=== PATIENT | male | born 1975 | race Caucasian/White ===

== ENCOUNTER 2018-04-15 17:32 | Emergency (ER) | payer OTHER ==
[2018-04-15 18:41] VITALS: O2SAT 97
--- NOTE | 2018-04-15 19:24 | ERPHSYRPT ---
- History of Present Illness Time Seen by Provider: 04/15/18 19:13 Source: patient Exam Limitations: no limitations Patient Subjective Stated Complaint: Patient complains of being dizzy. Patient also states he has a headache. Patient has been vomitting since last noc. Patient very tired. Triage Nursing Assessment: Patient ambulates into ER and transfers into bed per self. Patient complains of being dizzy. Patient has a headache. Patient states he started not feeling well last night at work and started vomitting. Patient hasn't vomitting since 0530 this am. Patient has slept all day and is more tired than usual. Patient A+O X 3. Patient pupils PERRL. No facial drooping noted. Hand loan reviewer strong and equal. Physician History: 42-year-old white male with history of high blood pressure arrives with complaint of nausea vomiting dizziness headache symptoms since yesterday no fevers. Patient states he might having eaten a bed can of tuna. Past medical history includes high blood pressure. Past surgical history is negative. Timing/Duration: yesterday Severity: moderate Modifying Factors: Improves With: other (patient thinks he ate a bad can of tuna yesterday) Associated Symptoms: nausea, vomiting, diaphoresis, headaches, No abdominal pain , No shortness of breath, No heartburn, No cough, No chills, No chest pain, No fever, No loss of appetite, No malaise, No rash, No syncope, No seizure Home Medications: Olmesartan/Hydrochlorothiazide [Benicar Hct 40-12.5 mg Tablet] 1 each PO DAILY 12/12/12 [History] Verapamil HCl Sr 180 mg [Isoptin Sr 180Mg] 2 tab PO DAILY 04/15/18 [ History] Hx Tetanus, Diphtheria Vaccination/Date Given: Yes Hx Influenza Vaccination/Date Given: Yes Hx Pneumococcal Vaccination/Date Given: No Immunizations Up to Date: Yes - Review of Systems Constitutional: No Fever, No Chills Eyes: No Symptoms Ears, Nose, & Throat: No Symptoms Respiratory: No Cough, No Dyspnea Cardiac: No Chest Pain, No Edema, No Syncope Abdominal/Gastrointestinal: Nausea, Vomiting, No Abdominal Pain, No Diarrhea, No Hematemesis, No Hematochezia Genitourinary Symptoms: No Dysuria Musculoskeletal: No Back Pain, No Neck Pain Skin: No Rash Neurological: Dizziness Psychological: No Symptoms Endocrine: No Symptoms All Other Systems: Reviewed and Negative - Past Medical History Pertinent Past Medical History: Yes Cardiac History: Hypertension - Past Surgical History Past Surgical History: No - Social History Smoking Status: Never smoker Exposure to second hand smoke: No Drug Use: none Patient Lives Alone: No Significant Family History: no pertinent family hx, hypertension - Nursing Vital Signs Nursing Vital Signs: Initial Vital Signs Temperature 98.1 F 04/15/18 17:45 Pulse Rate 77 04/15/18 17:45 Respiratory Rate 18 04/15/18 17:45 Blood Pressure 144/112 04/15/18 17:45 O2 Sat by Pulse Oximetry 98 04/15/18 17:45 Pain Scale Pain Intensity 0 - Physical Exam General Appearance: no apparent distress, alert Eye Exam: PERRL/EOMI, eyes nml inspection Ears, Nose, Throat Exam: normal ENT inspection, TMs normal, pharynx normal, moist mucous membranes Neck Exam: normal inspection, non-tender, supple, full range of motion Respiratory Exam: normal breath sounds, lungs clear, No respiratory distress Cardiovascular Exam: regular rate/rhythm, normal heart sounds, normal peripheral pulses, No murmur Gastrointestinal/Abdomen Exam: soft, normal bowel sounds, No tenderness, No mass Back Exam: normal inspection, normal range of motion, No CVA tenderness, No vertebral tenderness Extremity Exam: normal inspection, normal range of motion, pelvis stable Neurologic Exam: alert, oriented x 3, cooperative, 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, normal mood/affect, nml cerebellar function, nml station & gait, sensation nml, No motor deficits, No sensory deficit, No disoriented, No confusion, No agitation, No uncooperative, No intoxicated appearance, No depressed mood/affect , No motor weakness, No facial droop, No slurred speech, No aphasia, No dysarthria, No abnormal gait, No abnormal cerebellar tests Skin Exam: normal color, warm, dry, No rash SpO2 Interpretation: normal (97%) SpO2: 97 Oxygen Delivery: Room Air - Course EKG Interpreted by Me: RATE (77 bpm), Sinus Rhythm, NORMAL AXIS, Other (EKG: Sinus arrhythmia, 77 bpm, normal axis, no acute ST or T wave changes noted) Ordered Tests: Active Orders 24 hr Category Date Time Status Accucheck STAT Care 04/15/18 19:19 Active EKG-ER Only STAT Care 04/15/18 19:19 Active IV Insertion STAT Care 04/15/18 19:19 Active Orthostatic Vital Signs STAT Care 04/15/18 19:19 Active HEAD WITHOUT CONTRAST [CT] Stat Exams 04/15/18 19:19 Taken AMYLASE Stat Lab 04/15/18 20:00 Completed CBC W DIFF Stat Lab 04/15/18 20:00 Completed CMP Stat Lab 04/15/18 20:00 Completed LIPASE Stat Lab 04/15/18 20:00 Completed TROPONIN Q3H Lab 04/15/18 20:00 Completed TROPONIN Q3H Lab 04/15/18 22:30 Ordered TROPONIN Q3H Lab 04/16/18 01:30 Ordered TROPONIN Q3H Lab 04/16/18 04:30 Ordered TROPONIN Q3H Lab 04/16/18 07:30 Ordered UA W/RFX UR CULTURE Stat Lab 04/15/18 Completed Urine Triage Profile Stat Lab 04/15/18 Completed Medication Summary Generic Name Dose Route Start Last Admin Trade Name Freq PRN Reason Stop Dose Admin Sodium Chloride 1,000 mls @ 100 mls/hr 04/15/18 19:30 04/15/18 19:45 Sodium Chloride 0.9% 1000 Ml IV 05/15/18 19:29 100 mls/hr .Q10H BARBIE Administration Lab/Rad Data: Laboratory Result Diagrams 04/15/18 20:00 04/15/18 20:00 Laboratory Results 04/15/18 04/15/18 04/15/18 Range/Units Unknown Unknown 20:00 WBC (4.0-10.5) K/mm3 RBC (4.1-5.6) M/mm3 Hgb (12.5-18.0) gm/dl Hct (42-50) % MCV (78-100) fl MCH (26-32) pg MCHC (32-36) g/dl RDW (11.5-14.0) % Plt Count (150-450) K/mm3 MPV (6-9.5) fl Gran % (36.0-66.0) % Eos # (Auto) (0-0.5) Absolute Lymphs (auto) (1.0-4.6) Absolute Monos (auto) (0.0-1.3) Lymphocytes % (24.0-44.0) % Monocytes % (0.0-12.0) % Eosinophils % (0.00-5.0) % Basophils % (0.0-0.4) % Absolute Granulocytes (1.4-6.9) Basophils # (0-0.4) Sodium (137-145) mmol/L Potassium (3.5-5.1) mmol/L Chloride (98-107) mmol/L Carbon Dioxide (22-30) mmol/L Anion Gap (5-15) MEQ/L BUN (9-20) mg/dL Creatinine (0.66-1.25) mg/dL Estimated GFR ML/MIN Glucose (74-106) mg/dL Calcium (8.4-10.2) mg/dL Total Bilirubin (0.2-1.3) mg/dL AST (17-59) U/L ALT (0-50) U/L Alkaline Phosphatase (38-126) U/L Troponin I < 0.012 (0.000-0.034) ng/mL Serum Total Protein (6.3-8.2) g/dL Albumin (3.5-5.0) g/dL Amylase (30-110) U/L Lipase (23-300) U/L Ur Collection Type CCMS Urine Color YELLOW (YELLOW) Urine Appearance CLEAR (CLEAR) Urine pH 6.0 (5-6) Ur Specific [place] 1.025 (1.005-1.025) Urine Protein NEGATIVE (Negative) Urine Ketones NEGATIVE (NEGATIVE) Urine Blood NEGATIVE (0-5) Elijah/ul Urine Nitrite NEGATIVE (NEGATIVE) Urine Bilirubin NEGATIVE (NEGATIVE) Urine Urobilinogen NORMAL (0-1) mg/dL Ur Leukocyte Esterase NEGATIVE (NEGATIVE) Urine Culture Reflexed NO (NO) Urine Glucose NEGATIVE (NEGATIVE) mg/dL Urine Opiates Level NEGATIVE (NEGATIVE) Ur Methadone NEGATIVE (NEGATIVE) Urine Barbiturates NEGATIVE (NEGATIVE) Ur Phencyclidine (PCP) NEGATIVE (NEGATIVE) Urine Amphetamine NEGATIVE (NEGATIVE) U Benzodiazepine Level NEGATIVE (NEGATIVE) Urine Cocaine NEGATIVE (NEGATIVE) Urine Marijuana (THC) NEGATIVE (NEGATIVE) Specimen Received [id number] 04/15/18 04/15/18 04/15/18 Range/Units 20:00 20:00 20:00 WBC 11.1 H (4.0-10.5) K/mm3 RBC 5.81 H (4.1-5.6) M/mm3 Hgb 17.5 (12.5-18.0) gm/dl Hct 49.2 (42-50) % MCV 84.7 (78-100) fl MCH 30.1 (26-32) pg MCHC 35.6 (32-36) g/dl RDW 12.9 (11.5-14.0) % Plt Count 263 (150-450) K/mm3 MPV 11.7 H (6-9.5) fl Gran % 71.9 H (36.0-66.0) % Eos # (Auto) 0.09 (0-0.5) Absolute Lymphs (auto) 2.20 (1.0-4.6) Absolute Monos (auto) 0.81 (0.0-1.3) Lymphocytes % 19.8 L (24.0-44.0) % Monocytes % 7.3 (0.0-12.0) % Eosinophils % 0.8 (0.00-5.0) % Basophils % 0.2 (0.0-0.4) % Absolute Granulocytes 8.01 H (1.4-6.9) Basophils # 0.02 (0-0.4) Sodium 140 (137-145) mmol/L Potassium 3.7 (3.5-5.1) mmol/L Chloride 102 (98-107) mmol/L Carbon Dioxide 28 (22-30) mmol/L Anion Gap 14.4 (5-15) MEQ/L BUN 14 (9-20) mg/dL Creatinine 0.66 (0.66-1.25) mg/dL Estimated GFR > 60.0 ML/MIN Glucose 104 (74-106) mg/dL Calcium 9.8 (8.4-10.2) mg/dL Total Bilirubin 0.50 (0.2-1.3) mg/dL AST 21 (17-59) U/L ALT 23 (0-50) U/L Alkaline Phosphatase 70 (38-126) U/L Troponin I (0.000-0.034) ng/mL Serum Total Protein 7.1 (6.3-8.2) g/dL Albumin 4.5 (3.5-5.0) g/dL Amylase 48 (30-110) U/L Lipase 34 (23-300) U/L Ur Collection Type Urine Color (YELLOW) Urine Appearance (CLEAR) Urine pH (5-6) Ur Specific [place] (1.005-1.025) Urine Protein (Negative) Urine Ketones (NEGATIVE) Urine Blood (0-5) Elijah/ul Urine Nitrite (NEGATIVE) Urine Bilirubin (NEGATIVE) Urine Urobilinogen (0-1) mg/dL Ur Leukocyte Esterase (NEGATIVE) Urine Culture Reflexed (NO) Urine Glucose (NEGATIVE) mg/dL Urine Opiates Level (NEGATIVE) Ur Methadone (NEGATIVE) Urine Barbiturates (NEGATIVE) Ur Phencyclidine (PCP) (NEGATIVE) Urine Amphetamine (NEGATIVE) U Benzodiazepine Level (NEGATIVE) Urine Cocaine (NEGATIVE) Urine Marijuana (THC) (NEGATIVE) Specimen Received - Progress Progress: improved Progress Note: 04/15/18 21:02 42-year-old white male arrives with complaint of dizziness nausea symptoms since yesterday patient has had a headache. Patient with mild increased blood pressure on arrival Patient's orthostats actually increased with patient standing patient's labs are remarkable for hemoglobin 17.5 hematocrit 49.2 white cell 11.1 chemistry essentially normal troponin within normal limits EKG sinus arrhythmia 77 bpm normal axis no acute ST or T wave changes Patient actually feeling better was normal saline at 100 mL per hour will give patient a full liter. Blood pressure had improved however increased after patient got up and ambulated Will repeat peak blood pressure after fluids instilled. Patient's head CT remarkable for remote right insula infarct otherwise negative. Patient neurologically normal. 04/15/18 21:33 Blood pressure now 136/84 Patient appears to be stable Labs essentially normal. Awaiting urine drug screen. Will plan to discharge. 04/15/18 21:46 Patient feeling much better. Will release. Will write for Phenergan as needed. - Departure Time of Disposition: 21:46 Departure Disposition: Home Clinical Impression: Dizziness, Volume depletion, Nausea Hypertension Qualifiers: Hypertension type: unspecified Qualified Code(s): I10 - Essential (primary) hypertension Condition: Fair Critical Care Time: No Referrals: ANA MARIA ELIZABETH [Primary Care Provider] - Additional Instructions: Return home. Plenty of fluids. Follow-up with your family doctor. Return for acute distress or for severe symptoms. Phenergan 25 mg orally every 4-6 hours as needed for nausea or vomiting Tylenol every 4 hours as needed for pain Follow-up with your family doctor. return for acute distress or for severe symptoms. take your medications as prescribed by your family doctor. Prescriptions: Promethazine HCl 25 mg [Phenergan 25 mg] 25 mg PO Q4-6HPRN PRN #12 tablet PRN Reason: nausea/ vomiting
[2018-04-15] MEDS ORDERED: Sodium Chloride 0.9% 1000 ML 1,000 ML IV SCH (19:30)
[2018-04-15] MEDS ORDERED: Sodium Chloride 0.9% 1000 ML 1,000 ML ONE (19:43)
[2018-04-15 20:18] LABS: BASOPHIL % 0.2 % (0.0-0.4); Basophil (Absolute #) 0.02 (0-0.4); Eosinophil % 0.8 % (0.00-5.0); Eosinophil (Absolute #) 0.09 (0-0.5); Granulocyte Absolute (ANC) 8.01 (1.4-6.9); Granulocytes % 71.9 % (36.0-66.0); Hematocrit 49.2 % (42-50); Hemoglobin 17.5 gm/dl (12.5-18.0); Lymphocytes % 19.8 % (24.0-44.0); Mean Cell Volume 84.7 fl (78-100); Mean Corpuscular Hemoglobin 30.1 pg (26-32); Mean Corpuscular Hgb Concent. 35.6 g/dl (32-36); Mean Platelet Volume 11.7 fl (6-9.5); Monocyte (Absolute #) 0.81 (0.0-1.3); Monocytes % 7.3 % (0.0-12.0); Platelet Count 263 K/mm3 (150-450); Red Blood Count 5.81 M/mm3 (4.1-5.6); Red Cell Distribution Width 12.9 % (11.5-14.0); White Blood Count 11.1 K/mm3 (4.0-10.5)
[2018-04-15 20:40] LABS: ALBUMIN 4.5 g/dL (3.5-5.0); ALKALINE PHOSPHATASE 70 U/L (38-126); AMYLASE 48 U/L (30-110); ANION GAP 14.4 MEQ/L (5-15); BLOOD UREA NITROGEN 14 mg/dL (9-20); CHLORIDE 102 mmol/L (98-107); Calcium 9.8 mg/dL (8.4-10.2); Carbon Dioxide 28 mmol/L (22-30); Creatinine 1 0.66 mg/dL (0.66-1.25); Glucose 104 mg/dL (74-106); LIPASE 34 U/L (23-300); Potassium 3.7 mmol/L (3.5-5.1); SGOT/AST 21 U/L (17-59); SGPT/ALT 23 U/L (0-50); SODIUM 140 mmol/L (137-145); Total Protein 7.1 g/dL (6.3-8.2)
[2018-04-15 21:11] VITALS: BP 136/84; PULSE 80
[2018-04-15 21:18] LABS: Appearance CLEAR (CLEAR); Leukocyte Esterase NEGATIVE (NEGATIVE); Nitrite NEGATIVE (NEGATIVE); Specific Gravity 1.025 (1.005-1.025)
[2018-04-15 21:19] LABS: Bilirubin NEGATIVE (NEGATIVE); Blood NEGATIVE Ery/ul (0-5); Glucose NEGATIVE (NEGATIVE); Ketones NEGATIVE (NEGATIVE); Protein,Urine Dip NEGATIVE (Negative); Urobilinogen NORMAL mg/dL (0-1)
[2018-04-15 21:28] LABS: Amphetamine,Urine NEGATIVE (NEGATIVE); Barbiturate,Urine NEGATIVE (NEGATIVE); Benzodiazepine,Urine NEGATIVE (NEGATIVE); Cocaine,Urine NEGATIVE (NEGATIVE); Methadone,Urine NEGATIVE (NEGATIVE); Opiate,Urine NEGATIVE (NEGATIVE); PCP,Urine NEGATIVE (NEGATIVE); THC,Urine NEGATIVE (NEGATIVE)
[2018-04-15] MEDS ORDERED: PHENERGAN 25 MG PO ONE (21:50)
[2018-04-15] MEDS ORDERED: PHENERGAN 25 MG ONE (22:11)
--- NOTE | 2018-04-16 08:41 | XRAY ---
Indication: Headache and dizziness. Multiple contiguous axial images obtained through the head without contrast. Comparison: None Right basal ganglia 10 mm remote appearing infarct. No acute intracranial hemorrhage, abnormal extra-axial fluid collection, or mass effect. Fourth ventricle is midline without hydrocephalus. Whitten-white matter differentiation preserved. Bony calvarium intact. Visualized paranasal sinuses and mastoid air cells are clear. Impression: Small remote right basal ganglia infarct. No acute intracranial abnormalities. CT DI 66.90
== END 2018-04-15 22:21 | disposition home or self-care (01) ==
LOC: ED 17:32
DX: R42 Dizziness and giddiness (principal); E86.9 Volume depletion, unspecified; R51 Headache; R11.2 Nausea with vomiting, unspecified; R61 Generalized hyperhidrosis; I10 Essential (primary) hypertension
CPT/HCPCS: 36000; 36415; 70450; 80053; 80307; 81002; 82150; 82962; 83690; 84484; 85025; 93005; 96360; 96361; 99284; A9270-GY